=== PATIENT | male | born 1965 | race Caucasian/White ===

== ENCOUNTER 2016-10-26 18:54 | Emergency (ER) | payer OTHER ==
[~2016-10-26] VITALS: Ht 170.2 cm; Wt 100.0 kg
[~2016-10-26 18:54] MED LIST: ALLOPURINOL100 MG PO; AMLODIPINE BESY10 MG PO; AUGMENTIN875 MG PO; AVALIDE PO; BELLADONNA; DOCUSATE CALCI240 MG PO; ERGOCALCIF50000 UNIT PO; FEOSOL325 MG PO; FISH OIL 1,0001 EACH PO; FISH OIL WITH1 EACH PO; FLOMAX0.4 MG PO; HYDROCHLOROTHIA25 MG PO; INTUNIV2 MG PO; IRBESARTAN300 MG PO; IRON45 MG PO; LIPITOR80 MG PO; LORATADINE10 M2 PO; MACHINE; METAMUCIL FIBE1 EACH PO; MOTRIN600 MG PO; MOTRIN800 MG PO; NIACIN500 M1 PO; NORCO 5/3251 TABLET PO; OMEPRAZOLE20 MG PO; OMEPRAZOLE40 M1 PO; PERCOCET 5/31 TABLET PO; REGLAN10 M1 PO; SENNA8.6 M1 PO; STRATTERA18 MG PO; STRATTERA60 MG PO; STRATTERA80 MG PO; TABLE PO; VICODIN 5-3001 EACH PO; VITAMIN C500 M1 PO; VITAMIN C500 M5 PO; VITAMIN D400 UNI1 PO; ZOFRAN ODT8 MG PO; ZOFRAN8 MG PO; ZOLOFT50 M1 PO; ZYRTEC10 M3 PO
[2016-10-26 19:22] LABS: ADD MIUA? YES; BILIRUBIN NEGATIVE; BLOOD TRACE; COLOR YELLOW ((YELLOW)); GLUCOSE (STRIP) NEGATIVE; KETONES NEGATIVE; LEUKOCYTES SMALL; NITRITE NEGATIVE; PROTEIN (STRIP) TRACE; SPECIFIC GRAVITY 1.021 (1.000-1.030)
[2016-10-26 19:32] LABS: BACTERIA RARE; CASTS PRESENT /LPF; CRYSTALS NONE SEEN; EPITHELIAL CELLS NONE SEEN; HYALINE CASTS 0-5 /LPF; MUCUS RARE; UCUL ADDED? NO
[2016-10-26 20:17] LABS: HEMATOCRIT 41.7 % (38.0-50.0); MCH 29.3 PG (29.0-34.0); MCHC 34.5 G/DL (30.0-36.0); MCV 84.8 FL (86-99); MEAN PLAT.VOLUME 9.4 uM^3 (9.0-12.4); PLATELET COUNT 351 K/uL (156-360); RBC DIS.WIDTH-CV 13.7 % (11.8-14.6); RBC DIS.WIDTH-SD 41.9 % (39-53); RED BLOOD COUNT 4.92 M/uL (4.00-5.50); WHITE BLOOD COUNT 12.3 K/uL (4.1-10.2)
[2016-10-26 20:28] LABS: CHLORIDE 102 mEq/L (99-109); POTASSIUM 3.3 mEq/L (3.7-5.4); SODIUM 140 mEq/L (136-147)
[2016-10-26 20:30] LABS: GLUCOSE 133 mg/dL (70-99)
[2016-10-26 20:31] LABS: ANION GAP 12 MEQ/L (2-14)
[2016-10-26 20:34] LABS: GFR ESTIMATE (CALCULATED) > 59 mL/min/
[2016-10-26] MEDS ORDERED: ZOFRAN4 MG PO (20:34)
[2016-10-26] MEDS ORDERED: PERCOCET 5/31 TABLET PO (20:34)
[2016-10-26 20:35] LABS: UREA NITROGEN (BUN) 16 mg/dL (9-23)
[2016-10-26 20:59] VITALS: BP 143/89
== END 2016-10-26 21:01 | disposition home or self-care (01) ==
LOC: EME 18:54
PROVIDERS: Physician Assistant
DX: N20.0 Calculus of kidney (principal); J45.909 Unspecified asthma, uncomplicated; E78.5 Hyperlipidemia, unspecified; I10 Essential (primary) hypertension; K21.9 Gastro-esophageal reflux disease without esophagitis; F90.9 Attention-deficit hyperactivity disorder, unspecified type
CPT/HCPCS: 74176; 80048; 81003; 85027; 99281; 99282; J1885; J2405; J3010; J7030